=== PATIENT | female | born 1980 | race Caucasian/White ===

== ENCOUNTER 2020-11-15 07:56 | Day surgery (SDC) | payer OTHER, SELFPAY ==
[~2020-11-15] VITALS: Ht 160 cm; Wt 124.7 kg
[~2020-11-15 07:56] MED LIST: CEFAZOLIN SOD 1 GM in D5W 50 ML IV ONE
[2020-11-15 08:33] LABS: HCG,QUAL RESULT NEGATIVE (NEGATIVE)
[2020-11-15] MEDS ORDERED: ONDANSETRON HCL 4 MG/2 ML VIAL IVP PRN (11:00)
[2020-11-15] MEDS ORDERED: fentaNYL CITRATE/PF 100 MCG/2 ML AMP IVP PRN ×2 (11:00)
[2020-11-15] MEDS ORDERED: D5/0.45 NS 1,000 ML IV SCH (11:45)
[2020-11-15] MEDS ORDERED: HYDROcodone/ACETAMIN 5-325 MG TAB (NORCO/ VICODIN) PO PRN (11:45)
[2020-11-15 13:36] VITALS: BP_SYST 125
== END 2020-11-15 13:10 | disposition home or self-care (01) ==
LOC: SDS 07:56
PROVIDERS: ATTEND Colon & Rectal Surgery
DX: C50.911 Malignant neoplasm of unspecified site of right female breast (principal); E66.01 Morbid (severe) obesity due to excess calories; Z68.42 Body mass index [BMI] 45.0-49.9, adult; Z79.899 Other long term (current) drug therapy
CPT/HCPCS: 36415; 36561; 71045; 77001; 84703; 87426; C1788; J0690; J7060; 76000